=== PATIENT | female | born 1990 | race Caucasian/White ===

== ENCOUNTER 2017-10-22 13:03 | Emergency (ER) | payer MEDICAID, OTHER ==
--- NOTE | 2017-10-22 13:58 | ED PDOC ---
Arrival/HPI - General Chief Complaint: Abnormal Skin Integrity Time Seen by Provider: 10/22/17 13:58 Historian: Patient - History of Present Illness Narrative History of Present Illness (Text): 10/22/17 13:58 27 y/o female, no significant pmh, nkda, c/o itching rash on the whole body x 6 days. Itching rash on the whole body except the face, no fever or chills, no night sweat, no numbness or tingling, no coughing or recent URI, no bodyache or joint pain, no numbness or tingling, no other medical or psychological complaints. Past Medical History - Provider Review Nursing Documentation Reviewed: Yes - Cardiac Hx Cardiac Disorders: No - Pulmonary Hx Respiratory Disorders: No - Neurological Hx Neurological Disorder: No - HEENT Hx HEENT Disorder: No - Renal Hx Renal Disorder: No - Endocrine/Metabolic Hx Endocrine Disorders: No - Hematological/Oncological Hx Blood Disorders: No - Integumentary Hx Dermatological Disorder: Yes Hx Eczema: Yes - Musculoskeletal/Rheumatological Hx Musculoskeletal Disorders: No - Gastrointestinal Hx Gastrointestinal Disorders: No - Genitourinary/Gynecological Hx Genitourinary Disorders: No - Psychiatric Hx Psychophysiologic Disorder: No Hx Substance Use: No Family/Social History - Physician Review Nursing Documentation Reviewed: Yes Family/Social History: Unknown Family HX Smoking Status: Never Smoked Hx Alcohol Use: No Hx Substance Use: No Allergies/Home Meds Allergies/Adverse Reactions: Allergies No Known Allergies Allergy (Verified 10/22/17 13:34) Review of Systems - Review of Systems Constitutional: absent: Fatigue, Fevers Eyes: absent: Vision Changes ENT: absent: Hearing Changes Respiratory: absent: SOB, Cough Cardiovascular: absent: Chest Pain Gastrointestinal: absent: Abdominal Pain, Nausea, Vomiting Skin: Rash, Pruritis, Skin Lesions. absent: Laceration, Abscess, Ulcer, Cellulitis Physical Exam Vital Signs Reviewed: Yes Vital Signs Temp Pulse Resp BP Pulse Ox 10/22/17 15:03 75 19 132/76 100 10/22/17 13:34 98.1 F 77 17 134/77 100 Temperature: Afebrile Blood Pressure: Normal Pulse: Regular Respiratory Rate: Normal Appearance: Positive for: Well-Appearing, Non-Toxic, Comfortable Pain Distress: None Mental Status: Positive for: Alert and Oriented X 3 - Systems Exam Head: Present: Atraumatic, Normocephalic Pupils: Present: PERRL Extroacular Muscles: Present: EOMI Conjunctiva: Present: Normal Mouth: Present: Moist Mucous Membranes Neck: Present: Normal Range of Motion Respiratory/Chest: Present: Clear to Auscultation, Good Air Exchange. No: Respiratory Distress, Accessory Muscle Use Cardiovascular: Present: Regular Rate and Rhythm, Normal S1, S2. No: Murmurs Abdomen: No: Tenderness, Distention, Peritoneal Signs Back: Present: Normal Inspection Upper Extremity: Present: Normal Inspection. No: Cyanosis, Edema Lower Extremity: Present: Normal Inspection. No: Edema Neurological: Present: GCS=15, CN II-XII Intact, Speech Normal Skin: Present: Warm, Dry, Rashes (Visible papule rash noted on the bilateral upper/lower extremities/trunk/chest/abdomen and neck but sparing the facial region, no cellulitis or ulcer, no bullseye or target signs. ), Normal Color Psychiatric: Present: Alert, Oriented x 3, Normal Insight, Normal Concentration Medical Decision Making ED Course and Treatment: 10/22/17 14:01 - test 10/22/17 14:52 -Urine hcg is negative -Discharge home with prednisone, zyrtec, avoid contact with possible allergen, follow up with your own pmd and record pressman within 2 days, return to the ER for any new or worsening signs or symptoms. - PA / MANAGER REQUIREMENTS / Resident Statement [facility] has reviewed & agrees with the documentation as recorded. [facility] has examined the patient and agrees with the treatment plan. Disposition/Present on Arrival - Present on Arrival Any Indicators Present on Arrival: No History of DVT/PE: No History of Uncontrolled Diabetes: No Urinary Catheter: No History of Decub. Ulcer: No History Surgical Site Infection Following: None - Disposition Have Diagnosis and Disposition been Completed?: Yes Diagnosis: Dermatitis Disposition: HOME/ ROUTINE Disposition Time: 14:01 Patient Plan: Discharge Patient Problems: Current Active Problems Problem Status Onset Dermatitis Acute Condition: GOOD Additional Instructions: -Discharge home with prednisone, zyrtec, avoid contact with possible allergen, follow up with your own pmd and record pressman within 2 days, return to the ER for any new or worsening signs or symptoms. Prescriptions: Cetirizine HCl [Zyrtec Allergy] 10 mg PO DAILY PRN #10 sgl PRN Reason: Other Prednisone 50 mg PO DAILY #5 tab Referrals: Bravo Marquez MD [Staff Provider] - Follow up with primary Forms: [employer] ([place]), WORK NOTE
[2017-10-22 15:33] VITALS: BP 134/77; PULSE 66; RESP 16; TEMP 98.2; O2SAT 97
== END 2017-10-22 15:25 | disposition home or self-care (01) ==
LOC: ED 13:03
DX: L30.9 Dermatitis, unspecified (principal)

== ENCOUNTER 2017-11-05 21:23 | Emergency (ER) | payer MEDICAID ==
[2017-11-05 21:59] VITALS: BMI 30.7
--- NOTE | 2017-11-05 22:03 | ED PDOC ---
Arrival/HPI - General Time Seen by Provider: 11/05/17 21:25 Historian: Patient - History of Present Illness Narrative History of Present Illness (Text): 11/05/17 22:00 27yo female with pmhx of eczema who present to ED with pruritic patch. states she was seen here two weeks ago for same complaint and the Prednisone she was given helped, but became worse again after she finished the prednisone. She notes that she have appointment with a Liquid Yeast Supervisor on Thursday. She denies SOB , tongue swelling, any inciting factors. She also complain of dizziness and chills for 2days. Denies any focla weakness, headache, abdominal pain, nausea, vomiting. Past Medical History - Provider Review Nursing Documentation Reviewed: Yes - Cardiac Hx Cardiac Disorders: No - Pulmonary Hx Respiratory Disorders: No - Neurological Hx Neurological Disorder: No - HEENT Hx HEENT Disorder: No - Renal Hx Renal Disorder: No - Endocrine/Metabolic Hx Endocrine Disorders: No - Hematological/Oncological Hx Blood Disorders: No - Integumentary Hx Dermatological Disorder: Yes Hx Eczema: Yes - Musculoskeletal/Rheumatological Hx Musculoskeletal Disorders: No - Gastrointestinal Hx Gastrointestinal Disorders: No - Genitourinary/Gynecological Hx Genitourinary Disorders: No - Psychiatric Hx Psychophysiologic Disorder: No Hx Substance Use: No Family/Social History - Physician Review Nursing Documentation Reviewed: Yes Family/Social History: Unknown Family HX Smoking Status: Never Smoked Hx Alcohol Use: No Hx Substance Use: No Allergies/Home Meds Allergies/Adverse Reactions: Allergies No Known Allergies Allergy (Verified 11/05/17 22:04) Review of Systems - Physician Review All systems were reviewed & negative as marked: Yes - Review of Systems Constitutional: Normal Eyes: Normal ENT: Normal Respiratory: Normal Cardiovascular: Normal Gastrointestinal: Normal Genitourinary Female: Normal Musculoskeletal: Normal Skin: Rash, Pruritis Neurological: Normal Endocrine: Normal Hemo/Lymphatic: Normal Psychiatric: Normal Physical Exam Vital Signs Reviewed: Yes Vital Signs Pulse Resp Pulse Ox 11/06/17 00:55 81 20 98 Temperature: Afebrile Blood Pressure: Normal Pulse: Regular Respiratory Rate: Normal Appearance: Positive for: Well-Appearing, Non-Toxic, Comfortable Pain Distress: None Mental Status: Positive for: Alert and Oriented X 3 - Systems Exam Head: Present: Atraumatic, Normocephalic Pupils: Present: PERRL Extroacular Muscles: Present: EOMI Conjunctiva: Present: Normal Mouth: Present: Moist Mucous Membranes Neck: Present: Normal Range of Motion Respiratory/Chest: Present: Clear to Auscultation, Good Air Exchange. No: Respiratory Distress, Accessory Muscle Use Cardiovascular: Present: Regular Rate and Rhythm, Normal S1, S2. No: Murmurs Abdomen: No: Tenderness, Distention, Peritoneal Signs Back: Present: Normal Inspection Upper Extremity: Present: Normal Inspection. No: Cyanosis, Edema Lower Extremity: Present: Normal Inspection. No: Edema Neurological: Present: GCS=15, CN II-XII Intact, Speech Normal Skin: Present: Warm, Dry, Rashes (dry scaly patches noted on b/l arms, trunk and abdominal wall), Normal Color Psychiatric: Present: Alert, Oriented x 3, Normal Insight, Normal Concentration Medical Decision Making ED Course and Treatment: 11/06/17 01:39 PT presented to ED for states history. She was hemodynamcially stable. Her neck was supple. she had no meningeal sign. She have exacerbation of her ezcema and was given solu medrol. she have appointment with a Liquid Yeast Supervisor and was advised to f/u with the shipping packer. Lab was reviewed. She have UTI and ketones was noted in her UA. She was hydrated and treated with Keflex. Referred to her PMD. - Lab Interpretations Lab Results: 11/05/17 22:36 11/05/17 22:36 Lab Results 11/05/17 22:36: Sodium 142, Potassium 4.0, Chloride 108 H, Carbon Dioxide 22, Anion Gap 16, BUN 12, Creatinine 0.6 L, Est GFR ( Amer) > 60, Est GFR ( Non-Af Amer) > 60, Random Glucose 94, Calcium 9.4, Total Bilirubin 0.2, AST 39 H , ALT 39, Alkaline Phosphatase 51, Total Protein 7.2, Albumin 4.0, Globulin 3.1 , Albumin/Globulin Ratio 1.3 11/05/17 22:36: Urine Color Yellow, Urine Appearance Clear, Urine pH 6.0, Ur Specific Margaret >= 1.030, Urine Protein Trace H, Urine Glucose (UA) Negative, Urine Ketones >=80, Urine Blood Negative, Urine Nitrate Negative, Urine Bilirubin Negative, Urine Urobilinogen 0.2, Ur Leukocyte Esterase Small H, Urine RBC 1 - 3, Urine WBC 5 - 10, Ur Epithelial Cells 6 - 8, Urine HCG, Qual Negative 11/05/17 22:36: WBC 11.6 H, RBC 3.88, Hgb 11.0 L, Hct 32.4 L, MCV 83.5, MCH 28.4 , MCHC 34.0, RDW 12.6, Plt Count 231, MPV 11.3 H, Gran % 71.3 H, Lymph % (Auto) 17.1 L, Ada % (Auto) 4.5, Eos % (Auto) 7.0 H, Baso % (Auto) 0.1, Gran # 8.29 H , Lymph # (Auto) 2.0, Ada # (Auto) 0.5, Eos # (Auto) 0.8 H, Baso # (Auto) 0.01 - Medication Orders Current Medication Orders: Discontinued Medications Cephalexin Monohydrate (Keflex) 500 mg PO STAT STA PRN Reason: Protocol Stop: 11/05/17 23:52 Last Admin: 11/06/17 00:46 Dose: 500 mg Diphenhydramine HCl (Benadryl) 25 mg PO STAT STA Stop: 11/05/17 21:59 Last Admin: 11/05/17 22:23 Dose: 25 mg Sodium Chloride (Sodium Chloride 0.9%) 1,000 mls @ 999 mls/hr IV .Q1H1M STA Stop: 11/06/17 00:04 Last Admin: 11/05/17 23:31 Dose: 999 mls/hr eMAR Start Stop Document 11/05/17 23:31 SS (Rec: 11/05/17 23:31 [id number]) Intravenous Solution Start Date 11/05/17 Start Time 23:31 End Date 11/06/17 End time 00:31 Total Infusion Time 60 Methylprednisolone (Solu-Medrol) 125 mg IVP STAT STA Stop: 11/05/17 21:59 Last Admin: 11/05/17 22:23 Dose: 125 mg IVP Administration Document 11/05/17 22:23 SS (Rec: 11/05/17 22:23 [id number]) Charges for Administration # of IVP Administrations 1 Disposition/Present on Arrival - Present on Arrival Any Indicators Present on Arrival: No History of DVT/PE: No History of Uncontrolled Diabetes: No Urinary Catheter: No History Surgical Site Infection Following: None - Disposition Have Diagnosis and Disposition been Completed?: Yes Diagnosis: Eczema, UTI (urinary tract infection) Disposition: HOME/ ROUTINE Disposition Time: 23:55 Patient Plan: Discharge Condition: STABLE Discharge Instructions (ExitCare): Urinary Tract Infections in Adults, Eczema ( Atopic Dermatitis) Additional Instructions: Follow up with your Doctor Drink plenty of fluid Return to ED for any new or worsening symptoms Prescriptions: Cephalexin [Keflex] 500 mg PO TID #21 capsule Referrals: Jackie Bello MD [Medical Doctor] - Follow up with primary Forms: [employer] (Citizen [place])
[2017-11-05] MEDS: DiphenhydrAMINE 12.5 mg/5 ml LIQ UD (5 ml) PO STA (22:23)
[2017-11-05 22:39] LABS: URINE BILIRUBIN NEGATIVE (NEGATIVE); URINE BLOOD NEGATIVE (NEGATIVE); URINE GLUCOSE (UA) NEGATIVE (NEGATIVE); URINE LEUKOCYTE ESTERASE SMALL Leu/uL (NEGATIVE); URINE PROTEIN TRACE mg/dL (<30 mg/dL); URINE UROBILINOGEN 0.2 E.U./dL (<1 E.U./dL)
[2017-11-05 22:40] LABS: BASO # 0.01 K/mm3 (0.0-2.0); BASO % 0.1 % (0.0-3.0); EOS # 0.8 (0.0-0.7); GRAN # 8.29 (1.4-6.5); GRAN % 71.3 % (50.0-68.0); LYMPH % 17.1 % (22.0-35.0); MEAN CELL VOLUME 83.5 fl (80.0-105.0); MEAN CORPUSCULAR HEMOGLOBIN 28.4 pg (25.0-35.0); MEAN PLATELET VOLUME 11.3 fl (7.0-11.0); MONO # 0.5 (0.1-0.6); MONO % 4.5 % (1.0-6.0); RBC 3.88 10^6/uL (3.5-6.1); RED CELL DISTRIBUTION WIDTH 12.6 % (11.5-14.5); WHITE BLOOD COUNT 11.6 10^3/ul (4.5-11.0)
[2017-11-05 22:49] LABS: ALB/GLOB RATIO 1.3 (1.1-1.8); ALT/SGPT 39 U/L (7-56); AST/SGOT 39 U/L (14-36); BLOOD UREA NITROGEN 12 mg/dL (7-21); CALCIUM 9.4 mg/dL (8.4-10.5); GFR NON-AFRICAN AMERICAN > 60; HCG,QUALITATIVE URINE NEGATIVE (NEGATIVE); URINE APPEARANCE CLEAR (CLEAR); URINE COLOR YELLOW (YELLOW)
[2017-11-05] MEDS: Sodium Chloride 0.9% 1,000 ML IV STA (23:31)
[2017-11-06 00:56] VITALS: PULSE 81; RESP 20; O2SAT 98
== END 2017-11-06 00:55 | disposition home or self-care (01) ==
LOC: ED 21:23
DX: N39.0 Urinary tract infection, site not specified (principal); L30.9 Dermatitis, unspecified
CPT/HCPCS: 80053; 81001; 84703; 85025; 96361; 96374; 99285; J2930; J7030